=== PATIENT | female | born 1955 | race Caucasian/White ===

== ENCOUNTER 2020-10-10 10:50 | Emergency (ER) | payer OTHER ==
[2020-10-10 11:47] LABS: BASOPHIL 0.8 % (0-2); EOSINOPHIL 3.3 % (0-7); HGB 12.9 g/dl (12.5-16.0); LYMPHOCYTE 19.3 % (15-48); MCH 30.6 pg (25.0-31.0); MCHC 33.9 g/dL (32.0-36.0); MONOCYTE 8.8 % (0-12); MPV 11.3 fL (6.0-9.5); NRBC 0; PLT 198 K/uL (150-400); RBC 4.22 M/uL (4.20-5.40); RDW 12.9 % (11.5-14.0); WBC 6.6 K/uL (4.0-10.5)
[2020-10-10 12:05] LABS: ALBUMIN 4.1 g/dL (3.4-5.0); BILIRUBIN - TOTAL 0.4 mg/dL (0.2-1.0); BUN/CREAT RATIO (CALC) 20.8 RATIO; CREATININE 2.16 mg/dL (0.51-0.95); GLOBULIN (CALCULATION) 2.7 g/dL; MAGNESIUM 1.7 mg/dL (1.8-2.4); POTASSIUM 4.1 mmol/L (3.5-5.1); TOTAL PROTEIN 6.8 g/dL (6.4-8.2)
== END 2020-10-10 13:16 | disposition home or self-care (01) ==
LOC: FER 10:50
PROVIDERS: Emergency Medicine
DX: R06.02 Shortness of breath (principal); I12.9 Hypertensive chronic kidney disease with stage 1 through stage 4 chronic kidney disease, or unspecified chronic kidney disease; E11.22 Type 2 diabetes mellitus with diabetic chronic kidney disease; N18.30 Chronic kidney disease, stage 3 unspecified; Z88.1 Allergy status to other antibiotic agents
CPT/HCPCS: 36415; 71046; 80053; 83735; 84145; 84484; 85025; 93005

== ENCOUNTER 2021-09-25 09:32 | Emergency (ER) | payer MEDICARE ==
[2021-09-25 10:40] LABS: BASOPHIL 1.4 % (0-2); EOSINOPHIL 19.2 % (0-7); HCT 42.1 % (37.0-47.0); HGB 13.5 g/dl (12.5-16.0); MCH 29.6 pg (25.0-31.0); MCHC 32.1 g/dL (32.0-36.0); MCV 92.3 fL (78.0-100.0); MONOCYTE 6.9 % (0-12); MPV 11.3 fL (6.0-9.5); NRBC 0; PLT 195 K/uL (150-400); RBC 4.56 M/uL (4.20-5.40); RDW 13.4 % (11.5-14.0); WBC 9.6 K/uL (4.0-10.5)
[2021-09-25 11:07] LABS: BILIRUBIN - TOTAL 0.3 mg/dL (0.2-1.0); BUN/CREAT RATIO (CALC) 13.9 RATIO; CREATININE 3.3 mg/dL (0.51-0.95); GLOBULIN (CALCULATION) 3.5 g/dL; POTASSIUM 4.5 mmol/L (3.5-5.1); TOTAL PROTEIN 7.5 g/dL (6.4-8.2)
== END 2021-09-25 12:06 | disposition home or self-care (01) ==
LOC: FER 09:32
PROVIDERS: Emergency Medicine
DX: R10.13 Epigastric pain (principal); E11.22 Type 2 diabetes mellitus with diabetic chronic kidney disease; N18.9 Chronic kidney disease, unspecified; Z88.1 Allergy status to other antibiotic agents
CPT/HCPCS: 36415; 74022; 80053; 83690; 85025